=== PATIENT | female | born 1930 | race Caucasian/White ===

== ENCOUNTER 2019-08-08 09:03 | Day surgery (SDC) | payer MEDICARE ==
[~2019-08-08 09:03] MED LIST: Buffered Lidocaine 1% SYRIN* 1 ML/SYRINGE INTRADERM ONE; Dexamethasone IV* 4 MG/ML 1 ML (4 MG) IV SLOW PU ONE; Famotidine IV* 10 MG/ML 2 ML (20 mg) IV ONE; Lactated Ringers 1000 ML Bag* 1,000 ML IV SCH
[2019-08-08] MEDS ORDERED: ceFAZolin 2 GM in NS PREMIX(*) 2 GM/100 ML BAG IVPB ONE (09:35)
[2019-08-08] MEDS ORDERED: Famotidine IV* 10 MG/ML 2 ML (20 mg) ONE (09:35)
[2019-08-08] MEDS ORDERED: Dexamethasone IV* 4 MG/ML 1 ML (4 MG) ONE (09:35)
[2019-08-08] MEDS ORDERED: Lidocaine 1% w EPI 1:100,000* MDV 20 ML VIAL ONE (11:27)
[2019-08-08] MEDS ORDERED: Mineral Oil Sterile, TOPICAL* 25 ML BTL ONE (11:27)
[2019-08-08] MEDS ORDERED: Bupivacaine 0.25% SDV PF* 10 ML VIAL INJ ONE (11:27)
[2019-08-08] MEDS ORDERED: fentaNYL* 50 MCG/ML 2 ML VIAL (100 MCG VIAL) ONE (11:40)
[2019-08-08] MEDS ORDERED: Midazolam* 1 MG/ML 2 ML VIAL (2 MG) ONE (11:40)
[2019-08-08] MEDS ORDERED: Propofol* 10 MG/ML 20 ML BTL ONE (11:41)
[2019-08-08] MEDS ORDERED: Ondansetron INJ* 2 MG/ML VIAL ONE (11:41)
[2019-08-08] MEDS ORDERED: Metoprolol Tartrate TAB* 50 mg PO ONE (12:00)
[2019-08-08] MEDS ORDERED: Naloxone* 0.4 MG/ML 1 ML VIAL IV PRN (12:31)
[2019-08-08 15:23] VITALS: BP 145/80
== END 2019-08-08 15:25 | disposition home or self-care (01) ==
LOC: OR 09:03
PROVIDERS: ATTEND Plastic Surgery
DX: C44.729 Squamous cell carcinoma of skin of left lower limb, including hip (principal); I25.810 Atherosclerosis of coronary artery bypass graft(s) without angina pectoris; I48.91 Unspecified atrial fibrillation; I08.0 Rheumatic disorders of both mitral and aortic valves; E03.9 Hypothyroidism, unspecified
CPT/HCPCS: 88305; 88329; A9270-GY; J0690; J1100; J2250; J2405; J2704; J3010; J3490